=== PATIENT | male | born 1965 | race Caucasian/White ===

== ENCOUNTER → 2016-07-08 | Outpatient (CLI) | payer OTHER ==
[2016-07-08 10:34] LABS: Basophils % (A) 0 %; CH 31.6; CHCM 33.9; Eosinophils # (A) 0.1 k/uL (0-0.7); Eosinophils % (A) 3 %; HCT 45.4 % (39.0-53.0); HDW 2.78; HGB 14.6 gm/dL (13.0-17.5); Luc # (Auto) 0.14; Luc % (Auto) 4; Lymphocytes # (A) 1.2 k/uL (1.0-4.8); Lymphocytes % (A) 31 %; MCH 30.1 pg (25.0-35.0); MCHC 32.1 g/dL (31.0-37.0); MCV 93.7 fL (80.0-100.0); Mean Platelet Volume 6.7; Monocytes # (A) 0.4 k/uL (0-1.0); Monocytes % (A) 9 %; Neutrophils # (A) 2.1 k/uL (1.3-7.7); Neutrophils % (A) 53 %; RBC 4.85 m/uL (4.30-5.90); RDW 13.7 % (11.5-15.5); WBC 3.9 k/uL (3.8-10.6); WBC (Perox) 3.89
[2016-07-08 11:04] LABS: ALT 37 U/L (21-72); AST 26 U/L (17-59); Alkaline Phosphatase 43 U/L (38-126); Anion Gap 8 mmol/L; Blood Urea Nitrogen 15 mg/dL (9-20); Calcium 9.3 mg/dL (8.4-10.2); Carbon Dioxide 26 mmol/L (22-30); Chloride 106 mmol/L (98-107); Cholesterol 142 mg/dL (<200); Glucose 108 mg/dL (74-99); HDL Cholesterol 74 mg/dL (40-60); Non-African American GFR(MDRD) >60 (>60 ml/min/1.73 sqM); Potassium 4.7 mmol/L (3.5-5.1); Sodium 140 mmol/L (137-145); Total Bilirubin 0.9 mg/dL (0.2-1.3); Total Protein 7.1 g/dL (6.3-8.2); Triglycerides 48 mg/dL (<150)
== END | disposition home or self-care (01) ==
LOC: LABWHC1 10:07
PROVIDERS: ATTEND Family Medicine
DX: Z00.00 Encounter for general adult medical examination without abnormal findings (principal); Z12.5 Encounter for screening for malignant neoplasm of prostate
CPT/HCPCS: 84439; 80061; 80053; 84443; 85025; 36415; G0103

== ENCOUNTER → 2017-07-28 | Outpatient (CLI) | payer BC ==
[2017-07-28 09:12] LABS: Basophils % (A) 1 %; Eosinophils # (A) 0.2 k/uL (0-0.7); Eosinophils % (A) 4 %; HCT 44.8 % (39.0-53.0); HGB 14.8 gm/dL (13.0-17.5); Lymphocytes # (A) 1.3 k/uL (1.0-4.8); Lymphocytes % (A) 30 %; MCH 30.5 pg (25.0-35.0); MCHC 33.1 g/dL (31.0-37.0); MCV 92.2 fL (80.0-100.0); Mean Platelet Volume 6.6; Monocytes # (A) 0.4 k/uL (0-1.0); Monocytes % (A) 10 %; Neutrophils # (A) 2.2 k/uL (1.3-7.7); Neutrophils % (A) 52 %; Platelet Count 208 k/uL (150-450); RBC 4.86 m/uL (4.30-5.90); RDW 13.5 % (11.5-15.5); WBC 4.2 k/uL (3.8-10.6)
[2017-07-28 11:58] LABS: ALT 42 U/L (21-72); AST 34 U/L (17-59); Albumin 4.2 g/dL (3.5-5.0); Alkaline Phosphatase 52 U/L (38-126); Anion Gap 9 mmol/L; Blood Urea Nitrogen 16 mg/dL (9-20); Calcium 9.4 mg/dL (8.4-10.2); Carbon Dioxide 25 mmol/L (22-30); Chloride 104 mmol/L (98-107); Cholesterol 201 mg/dL (<200); Glucose 88 mg/dL (74-99); HDL Cholesterol 82 mg/dL (40-60); LDL Cholesterol,Calculated 107 mg/dL (0-99); Potassium 4.3 mmol/L (3.5-5.1); Sodium 138 mmol/L (137-145); Total Bilirubin 1.3 mg/dL (0.2-1.3); Triglycerides 60 mg/dL (<150)
[2017-07-28 12:14] LABS: T4, Free (Free Thyroxine) 0.93 ng/dL (0.78-2.19)
[2017-07-28 12:28] LABS: PSA Annual Screen 0.67 ng/mL (0.00-4.00)
== END | disposition home or self-care (01) ==
LOC: LABWHC1 08:32
PROVIDERS: ATTEND Family Medicine
DX: Z00.00 Encounter for general adult medical examination without abnormal findings (principal); Z12.5 Encounter for screening for malignant neoplasm of prostate
CPT/HCPCS: 84439; 80061; 80053; 84443; 85025; 36415; G0103

== ENCOUNTER → 2018-04-15 | Outpatient (CLI) | payer BC ==
--- NOTE | 2018-04-15 15:34 | US ---
EXAMINATION TYPE: US scrotum with doppler. Grayscale and color Doppler Duplex imaging performed of t he scrotum. DATE OF EXAM: 04/15/2018 COMPARISON: NONE CLINICAL HISTORY: N50.9 Left testicle mass. EXAM MEASUREMENTS: TESTICLES: Right Testicle: 4.4 x 2.2 x 3.6 cm Left Testicle: 4.0 x 2.7 x 3.1 cm EPIDIDYMIS HEAD: Right Epididymis: 0.7 cm Left Epididymis: unable to visualize left due to crowding with hydrocele Doppler performed to assess for testicular vascularity; good bilateral color flow and waveforms are s een. There is no evidence of testicular torsion. Presence of hydroceles: Left measuring 4.8 x 5.6 x 3.2cm Presence of varicoceles: no Color flow, arterial and venous waveforms are noted in both testes. IMPRESSION: Left-sided hydrocele is sizable.
== END ==
LOC: RADUSWWP 14:37
PROVIDERS: ATTEND Family Medicine
DX: N43.3 Hydrocele, unspecified (principal)
CPT/HCPCS: 76870; 93975

== ENCOUNTER → 2019-08-02 | Outpatient (CLI) | payer BC ==
[2019-08-02 09:23] LABS: HCT 47.9 % (39.0-53.0); HGB 15.6 gm/dL (13.0-17.5); MCH 30.1 pg (25.0-35.0); MCHC 32.5 g/dL (31.0-37.0); MCV 92.7 fL (80.0-100.0); Mean Platelet Volume 7.2; Platelet Count 217 k/uL (150-450); RBC 5.17 m/uL (4.30-5.90); RDW 13.3 % (11.5-15.5); WBC 4.4 k/uL (3.8-10.6)
[2019-08-02 09:43] LABS: Basophils # (M) 0.04 k/uL (0-0.2); Eosinophils # (M) 0.09 k/uL (0-0.7); Monocytes # (M) 0.35 k/uL (0-1.0); Neutrophils # (M) 2.42 k/uL (1.3-7.7); Neutrophils % (M) 55 %; Nucleated Red Blood Cells 0 /100 WBC (0-0); Total Cells Counted 100
[2019-08-02 15:57] LABS: African American GFR (CKD) 78.4 (60.0-200.0); Albumin 4.5 g/dL (3.80-4.90); Albumin/Globulin Ratio 1.96 (1.60-3.17); BUN/Creat Ratio 18.33 Ratio (12.00-20.00); Calcium 9.5 mg/dL (8.7-10.3); Chol/HDL Ratio 2.69; Globulin 2.3 g/dL (1.6-3.3); LDL Cholesterol,Calculated 101.6 mg/dL (0.0-131.0); Non-African American GFR(CKD) 67.7 (60.0-200.0); Total Bilirubin 0.8 mg/dL (0.2-1.2); Total Protein 6.8 g/dL (6.2-8.2); VLDL Calculation 16.4 mg/dL (5.00-40.00)
[2019-08-02 16:05] LABS: T4, Free (Free Thyroxine) 1.3 ng/dL (0.80-1.80)
[2019-08-02 17:13] LABS: Hemoglobin A1C 6.6 % (4.0-6.0)
== END | disposition home or self-care (01) ==
LOC: LABWHC1 08:35
PROVIDERS: ATTEND Family Medicine
DX: Z00.00 Encounter for general adult medical examination without abnormal findings (principal)
CPT/HCPCS: 36415; 80053; 80061; 83036; 84153; 84439; 84443; 85025

== ENCOUNTER → 2023-07-31 | Outpatient (CLI) | payer BC ==
[2023-07-31 15:31] LABS: HCT 43.8 % (39.6-50.0); HGB 14.9 g/dL (13.0-17.0); MCH 31.5 pg (27.0-32.0); MCV 92.6 FL (80.0-97.0); NRBC Per 100 WBC 0 X 10*3/uL (0.00-0.01); Platelet Count 223 X 10*3/uL (140-440); RBC 4.73 X 10*6/uL (4.40-5.60); RDW 13.8 % (11.5-14.5); WBC 4.74 X 10*3/uL (4.50-10.00)
[2023-07-31 16:49] LABS: ALT 40 U/L (10-49); AST 33 U/L (14-35); Albumin 4.4 g/dL (3.8-4.9); Albumin/Globulin Ratio 1.91 Ratio (1.60-3.17); Alkaline Phosphatase 51 U/L (41-126); BUN/Creat Ratio 19.31 Ratio (12.00-20.00); Blood Urea Nitrogen 25.1 mg/dL (9.0-27.0); Calcium 9.5 mg/dL (8.7-10.3); Carbon Dioxide 22.6 mmol/L (21.6-31.8); Chloride 106 mmol/L (96-109); Chol/HDL Ratio 2.72 Ratio; Globulin 2.3 g/dL (1.6-3.3); Glucose 121 mg/dL (70-110); LDL Cholesterol,Calculated 99.8 mg/dL (0.0-131.0); Potassium 4.5 mmol/L (3.5-5.5); Sodium 140 mmol/L (135-145); T4, Free (Free Thyroxine) 1.11 ng/dL (0.80-1.80); Total Bilirubin 0.6 mg/dL (0.3-1.2); Total Protein 6.7 g/dL (6.2-8.2); VLDL Calculation 16.46 mg/dL (5.00-40.00)
== END | disposition home or self-care (01) ==
LOC: LABWHC1 08:33
PROVIDERS: ATTEND Family Medicine
DX: Z00.00 Encounter for general adult medical examination without abnormal findings (principal); Z12.5 Encounter for screening for malignant neoplasm of prostate; E11.9 Type 2 diabetes mellitus without complications; E03.9 Hypothyroidism, unspecified
CPT/HCPCS: 84439; 80061; 80053; 84443; 85027; 83036; 36415; G0103

== ENCOUNTER 2024-07-09 10:04 | Observation (INO) | payer BC ==
--- NOTE | 2024-07-09 10:57 | ED ---
Chest Pain HPI - General Chief Complaint: Chest Pain Stated Complaint: Chest pain, dizziness Time Seen by Provider: 07/09/24 10:23 Source: patient, RN notes reviewed Mode of arrival: ambulatory Limitations: no limitations - History of Present Illness Initial Comments: 59-year-old male presents emergency department chief complaint of chest pain, lightheadedness and dizziness. Patient states he started having some chest comfort and came home from work last night he states that has progressed he states the dizziness started around midnight. He states he feels very lightheaded with the room spinning. Patient denies any headache no focal weakness. Patient states he did have a heart cath 10 years ago. He does have a history of hyperlipidemia and hypertension and diabetes but recently got off oral medications. Patient has a significant cardiac family history. Denies any leg pain leg swelling no history of DVT or PE. - Related Data Home Medications Medication Instructions Recorded Confirmed Levothyroxine Sodium [Synthroid] 25 mcg PO DAILY 03/04/14 10/04/15 Simvastatin [Zocor] 80 mg PO HS 03/04/14 10/04/15 amLODIPine BESYLATE/BENAZEPRIL 5 mg PO DAILY 03/04/14 10/04/15 [Lotrel 10-20 mg Capsule] Allergies Allergy/AdvReac Type Severity Reaction Status Date / Time No Known Allergies Allergy Verified 07/09/24 10:18 Review of Systems ROS Statement: Those systems with pertinent positive or pertinent negative responses have been documented in the HPI. ROS Other: All systems not noted in ROS Statement are negative. EKG Findings - EKG Comments: EKG Findings:: EKG performed at 10: 31 sinus rhythm rate of 86 UT 167 QRS 95 QT/QTc 339/382 there is noted inverted T wave in lead III - EKG Results: EKG: interpreted by VALARIE Past Medical History Past Medical History: Hyperlipidemia, Hypertension, Thyroid Disorder History of Any Multi-Drug Resistant Organisms: None Reported Past Surgical History: Heart Catheterization Additional Past Anesthesia/Blood Transfusion Reaction / Comment(s): never had anesthesia Past Psychological History: No Psychological Hx Reported Smoking Status: Never smoker Past Alcohol Use History: Occasional Past Drug Use History: None Reported General Exam Limitations: no limitations General appearance: alert, in no apparent distress Head exam: Present: atraumatic, normocephalic, normal inspection Eye exam: Present: normal appearance, PERRL, EOMI. Absent: scleral icterus, conjunctival injection, periorbital swelling Neck exam: Present: normal inspection, full ROM. Absent: tenderness, meningismus, lymphadenopathy Respiratory exam: Present: normal lung sounds bilaterally. Absent: respiratory distress, wheezes, rales, rhonchi, stridor Cardiovascular Exam: Present: regular rate, normal rhythm, normal heart sounds. Absent: systolic murmur, diastolic murmur, rubs, gallop, clicks GI/Abdominal exam: Present: soft, normal bowel sounds. Absent: distended, tenderness, guarding, rebound, rigid Course Vital Signs 07/09/24 10:12 Temperature 97.9 F Pulse Rate 90 Respiratory 22 Rate Blood Pressure 178/95 O2 Sat by Pulse 98 Oximetry Chest Pain MDM - MDM Was pt. sent in by a medical professional or institution (, PA, DRIVE IN THEATER ATTENDANT, urgent care, hospital, or senior care...) When possible be specific @ -No Did you speak to anyone other than the patient for history (EMS, parent, family, police, friend...)? What history was obtained from this source @ -No Did you review nursing and triage notes (agree or disagree)? Why? @ -I reviewed and agree with nursing and triage notes Were old charts reviewed (outside hosp., previous admission, EMS record, old EKG, old radiological studies, urgent care reports/EKG's, senior care records)? Report findings @ -No old charts were reviewed Differential Diagnosis (chest pain, altered mental status, abdominal pain women, abdominal pain men, vaginal bleeding, weakness, fever, dyspnea, syncope, headache, dizziness, GI bleed, back pain, seizure, CVA, palpatations, mental h ealth, musculoskeletal)? @Differential Chest Pain: Stable Angina, Unstable Angina, STEMI, NSTEMI Aortic Dissection, Pneumothorax, Musculoskeletal, Esophageal Spasm GERD, Cholecystitis, Pancreatitis, Zoster, this is not meant to be an all-inclusive list. EKG interpreted by me (3pts min.). @ -As above X-rays interpreted by me (1pt min.). @ -Chest x-ray shows no acute cardiopulmonary process CT interpreted by me (1pt min.). @ -None done U/S interpreted by me (1pt. min.). @ -None done What testing was considered but not performed or refused? (CT, X-rays, U/S, labs)? Why? @ -None What meds were considered but not given or refused? Why? @ -None Did you discuss the management of the patient with other professionals (professionals i.e. , PA, DRIVE IN THEATER ATTENDANT, lab, RT, psych nurse, social work specialist, hr analyst, t eacher, canine enforcement officer, pillowcase turner)? Give summary @ -Dr. Mccord for admission Was smoking cessation discussed for >3mins.? @ -No Was critical care preformed (if so, how long)? @ -No Were there social determinants of health that impacted care today? How? (Homelessness, low income, unemployed, alcoholism, drug addiction, transportation, low edu. Level, literacy, decrease access to med. care, assisted, rehab)? @ -No Was there de-escalation of care discussed even if they declined (Discuss DNR or withdrawal of care, Hospice)? DNR status @ -No What co-morbidities impacted this encounter? (DM, HTN, Smoking, COPD, CAD, Cancer, CVA, ARF, Chemo, Hep., AIDS, mental health diagnosis, sleep apnea, morbid obesity)? @ -Hypertension hyperlipidemia diabetes Was patient admitted / discharged? Hospital course, mention meds given and route, prescriptions, significant lab abnormalities, going to OR and other pertinent info. @ -Admitted for complaints of chest pain and dizziness. Patient only has anterior mild chest pain he has no back pain no tearing sensation he does have intermittent dizziness. Patient may admitted for cardiac rule out he has a negative troponin, EKG has mild changes no ST elevation. Undiagnosed new problem with uncertain prognosis? @ -No Drug Therapy requiring intensive monitoring for toxicity (Heparin, Nitro, Insulin, Cardizem)? @ -No Were any procedures done? @ -No Diagnosis/symptom? @ -Chest pain Acute, or Chronic, or Acute on Chronic? @ -Acute Uncomplicated (without systemic symptoms) or Complicated (systemic symptoms)? @ -Complicated Side effects of treatment? @ -No Exacerbation, Progression, or Severe Exacerbation? @ -No Poses a threat to life or bodily function? How? (Chest pain, USA, VT, pneumonia, PE, COPD, DKA, ARF, appy, cholecystitis, CVA, Diverticulitis, Homicidal, Suicidal, threat to staff... and all critical care pts) @ -Yes possible ACS risk for cardiac function Disposition Clinical Impression: Chest pain Disposition: ADMITTED IP TO THIS HOSP Referrals: Brandt Mccord DO [Primary Care Provider] - 1-2 days Time of Disposition: 13:39
[2024-07-09 11:58] LABS: Basophils % (A) 0 %; Eosinophils # (A) 0.1 k/uL (0-0.7); Eosinophils % (A) 2 %; HCT 47.3 % (39.0-53.0); HGB 15.9 gm/dL (13.0-17.5); Lymphocytes # (A) 1.3 k/uL (1.0-4.8); Lymphocytes % (A) 20 %; MCH 31.4 pg (25.0-35.0); MCHC 33.7 g/dL (31.0-37.0); MCV 93.2 fL (80.0-100.0); Mean Platelet Volume 7.4; Monocytes # (A) 0.5 k/uL (0-1.0); Monocytes % (A) 8 %; Neutrophils # (A) 4.3 k/uL (1.3-7.7); Neutrophils % (A) 68 %; Platelet Count 227 k/uL (150-450); RBC 5.08 m/uL (4.30-5.90); RDW 13.7 % (11.5-15.5); WBC 6.3 k/uL (3.8-10.6)
[2024-07-09 12:09] LABS: ALT 36 U/L (4-49); AST 41 U/L (17-59); African American GFR (CKD) >90 (>60 ml/min/1.73 sqM); Albumin 4.6 g/dL (3.5-5.0); Alkaline Phosphatase 50 U/L (38-126); Anion Gap 11 mmol/L; Blood Urea Nitrogen 25 mg/dL (9-20); Calcium 9.4 mg/dL (8.4-10.2); Carbon Dioxide 24 mmol/L (22-30); Chloride 103 mmol/L (98-107); Glucose 113 mg/dL (74-99); Magnesium 1.9 mg/dL (1.6-2.3); Non-African American GFR(CKD) 89 (>60 ml/min/1.73 sqM); Potassium 4.5 mmol/L (3.5-5.1); Sodium 138 mmol/L (137-145); Total Bilirubin 0.9 mg/dL (0.2-1.3); Total Protein 7.3 g/dL (6.3-8.2)
[2024-07-09 12:12] LABS: Prothrombin Time 11.4 sec (10.0-12.5)
[2024-07-09 12:16] LABS: NT-Pro-B-Type Natriuretic Pept 60 pg/mL
[2024-07-09] MEDS: ASPIRIN 81 MG PO STA (13:09)
--- NOTE | 2024-07-09 13:21 | XR ---
EXAMINATION TYPE: XR chest 2V DATE OF EXAM: 07/09/2024 12:43 PM COMPARISON: Chest x-ray February 28, 2014 CLINICAL INDICATION: Male, 59 years old with history of Chest Pain, TECHNIQUE: Frontal and lateral views of the chest are obtained. FINDINGS: There is no focal air space opacity, pleural effusion, or pneumothorax seen. The cardiac silhouette size remains within normal limits. Multilevel spurring and bridging osteophytes in the tho racic spine are redemonstrated. IMPRESSION: No acute process. No significant change from prior. [facility], , 07/09/2024 1:19 PM
[2024-07-09] MEDS ORDERED: NITROGLYCERIN SL TABS 0.4 MG TAB SUBLINGUAL PRN (13:34)
[2024-07-09] MEDS: ATORVASTATIN 40 MG TAB PO SCH (21:27)
[2024-07-10] MEDS: LEVOTHYROXINE 25 MCG TAB PO SCH (05:51)
[2024-07-10] MEDS: lisinopriL 20 MG TAB PO SCH (08:44)
[2024-07-10] MEDS: amLODIPine 10 MG TAB PO SCH (08:45)
[2024-07-10] MEDS ORDERED: ASPIRIN 325 MG TAB PO SCH (09:00)
--- NOTE | 2024-07-10 10:04 | P.CRDCN ---
History of Present Illness Consult date: 07/10/24 Consult reason: chest pain History of present illness: This is a 67-year-old male patient previously seen in the office [address] Crain and at that time had history of hypertension hyperlipidemia. He also has history of hypothyroidism. Patient states that he developed chest pain that felt like a tightness in the mid area that started on Sunday and lasted all day. He then developed dizziness that was lasting for 30 seconds and occurred every time he moved his had a rolled over in bed. He states the room was spinning. He has never had this sensation before. He denies any chest pain at this time. No palpitations. Blood pressure 158/88, heart rate 78, pulse ox 98% on room air. Patient has a family history of father with coronary artery disease at age 51. -EKG: Sinus rhythm with no acute ST-T wave changes. -Chest x-ray: No acute process. -Laboratory studies: CBC within normal limits. D-dimer 0.29. Sodium 138, p otassium 4.5, BUN 25 creatinine 0.93. Troponin negative x 3. Magnesium 1.9. Liver function test normal. proBNP 60. -Home cardiac medications: Amlodipine/benazepril 5-21 tablet daily, simvastatin 40 mg daily at bedtime, also on levothyroxine. -Cardiac catheterization performed in 2013 revealed normal coronaries, normal end-diastolic pressure, normal left ventricular function. Abnormal Cardiolite scan appears to be false positive. Review Of Systems: At the time of my exam: CONSTITUTIONAL: Denies fever or chills. Reports dizziness. HEENT: Denies blurred vision, vision changes, or eye pain. Denies hemoptysis CARDIOVASCULAR: Denies chest pain. Denies orthopnea. Denies PND. Denies palpitat ions RESPIRATORY: Denies shortness of breath. GASTROINTESTINAL: Denies abdominal pain. Denies nausea or vomiting. HEMATOLOGIC: Denies bleeding disorders. GENITOURINARY: Denies any blood in urine. SKIN: Denies puritis. Denies rash. Physical examination: Gen: This is 59-year-old male in no acute distress VS: reviewed HEENT: Head is atraumatic, normocephalic. Pupils equal, round. Sclerae is anict vignesh. NECK: Supple. No JVD. LUNGS: Clear to auscultation. No wheezes or rhonchi. No intercostal r etractions. HEART: Regular rate and rhythm. No murmur. ABDOMEN: Soft No tenderness. EXTREMITIES: No pedal edema. No calf tenderness. NEUROLOGICAL: Patient is awake, alert and oriented x3. Assessment: Vertigo Atypical chest pain, resolved Acute coronary syndrome ruled out Hypertension Hyperlipidemia Hypothyroidism Plan: Resume patient's home cardiac medications Discontinue nitroglycerin and aspirin Start patient on meclizine 25 mg 3 times daily for dizziness Obtain 2-D echocardiogram and Doppler study to assess cardiac structure and function If echocardiogram is unremarkable, patient is cleared for discharge and may follow-up in the office with Dr. Murphy for outpatient stress testing once vertigo is resolved. Further recommendations to follow based upon clinical course Thank you kindly for this consultation. Nurse practitioner note has been reviewed, I agree with documented findings and plan of care. Patient was seen and examined. Past Medical History Past Medical History: Hyperlipidemia, Hypertension, Thyroid Disorder History of Any Multi-Drug Resistant Organisms: None Reported Past Surgical History: Heart Catheterization Additional Past Anesthesia/Blood Transfusion Reaction / Comment(s): never had anesthesia Smoking Status: Never smoker Medications and Allergies Home Medications Medication Instructions Recorded Confirmed Type Levothyroxine Sodium [Synthroid] 25 mcg PO DAILY 03/04/14 07/09/24 History Mv-Min/Folic/K1/Lycopen/Lutein 1 tab PO HS 07/09/24 07/09/24 History [Centrum Silver Men Tablet] Simvastatin [Zocor] 40 mg PO HS 07/09/24 07/09/24 History amLODIPine BESYLATE/BENAZEPRIL 1 cap PO DAILY 07/09/24 07/09/24 History [Lotrel 5-20 mg Capsule] Allergies Allergy/AdvReac Type Severity Reaction Status Date / Time No Known Allergies Allergy Verified 07/09/24 14:20 Physical Exam Vitals: Vital Signs Temp Pulse Pulse Resp BP BP Pulse Ox 07/10/24 02:34 78 18 158/88 98 07/09/24 20:05 98 F 66 18 146/93 98 07/09/24 17:28 98.6 F 73 16 166/97 99 07/09/24 13:47 84 18 150/92 96 07/09/24 10:12 97.9 F 90 22 178/95 98 Intake and Output 07/09/24 07/10/24 07/10/24 22:59 06:59 14:59 Other: # Voids 2 Weight 105.233 kg Results 07/09/24 11:20 07/09/24 11:20 Cardiac Enzymes 07/09/24 07/09/24 07/09/24 Range/Units 11:20 11:20 14:09 AST 41 (17-59) U/L Troponin I <0.012 <0.012 (0.000-0.034) ng/mL 07/09/24 Range/Units 17:44 AST (17-59) U/L Troponin I <0.012 (0.000-0.034) ng/mL Coagulation 07/09/24 Range/Units 11:20 PT 11.4 (10.0-12.5) sec APTT 23.0 (22.0-30.0) sec CBC 07/09/24 Range/Units 11:20 WBC 6.3 (3.8-10.6) k/uL RBC 5.08 (4.30-5.90) m/uL Hgb 15.9 (13.0-17.5) gm/dL Hct 47.3 (39.0-53.0) % Plt Count 227 (150-450) k/uL Comprehensive Metabolic Panel 07/09/24 Range/Units 11:20 Sodium 138 (137-145) mmol/L Potassium 4.5 (3.5-5.1) mmol/L Chloride 103 (98-107) mmol/L Carbon Dioxide 24 (22-30) mmol/L BUN 25 H (9-20) mg/dL Creatinine 0.93 (0.66-1.25) mg/dL Glucose 113 H (74-99) mg/dL Calcium 9.4 (8.4-10.2) mg/dL AST 41 (17-59) U/L ALT 36 (4-49) U/L Alkaline Phosphatase 50 (38-126) U/L Total Protein 7.3 (6.3-8.2) g/dL Albumin 4.6 (3.5-5.0) g/dL Current Medications Generic Name Dose Route Start Last Admin Trade Name Freq PRN Reason Stop Dose Admin Amlodipine Besylate 10 mg 07/10/24 09:00 Amlodipine 10 Mg Tab PO DAILY REPLACED BY [facility] Aspirin 325 mg 07/10/24 09:00 Aspirin 325 Mg Tab PO DAILY REPLACED BY [facility] Atorvastatin Calcium 40 mg 07/09/24 21:00 07/09/24 21:27 Atorvastatin 40 Mg Tab PO 40 mg HS ASHOK Administration Levothyroxine Sodium 25 mcg 07/10/24 06:30 07/10/24 05:51 Levothyroxine 25 Mcg Tab PO 25 mcg 0630 ASHOK Administration Lisinopril 20 mg 07/10/24 09:00 Lisinopril 20 Mg Tab PO DAILY REPLACED BY [facility] Nitroglycerin 0.4 mg 07/09/24 13:34 Nitroglycerin Sl Tabs 0.4 Mg Tab SUBLINGUAL Q5M PRN Chest Pain Intake and Output 07/09/24 07/10/24 07/10/24 22:59 06:59 14:59 Other: # Voids 2 Weight 105.233 kg 07/09/24 11:20 07/09/24 11:20
[2024-07-10] MEDS: MECLIZINE 25 MG TAB PO PRN (10:25)
[2024-07-10 10:54] LABS: Chol/HDL Ratio 2.53 Ratio; VLDL Calculation 18.04 mg/dL (5.00-40.00)
--- NOTE | 2024-07-10 12:12 | P.HPIM ---
History of Present Illness H&P Date: 07/10/24 Chief Complaint: Dizziness, chest pressure, mild shortness of breath History and Physical and Discharge Summary: This is a pleasant 59-year-old gentleman with past medical history significant for hypertension, hyperlipidemia, hypothyroidism, obesity presented to the ER with complaints of of dizziness, chest pressure and mild shortness of breath upon awakening. Reports yesterday, upon awakening developed new onset of dizziness when changing positions from lying to sitting and from turning left to right, accompanied by chest pressure and mild shortness of breath.states his dizziness occurrences lasted less than a minute. Hypertensive on admission with blood pressure 178/95, heart rate 90, respiratory rate 22, maintaining O2 sats in the high 90s on room air. Hematology, coagulation panels unremarkable. Electrolytes within normal limits. Bicarb 24, BUN 25, creatinine 0.93, GFR 89. Glucose 113. Troponin negative x 3, proBNP 60. EKG reported sinus rhythm. Currently denies any chest pain, palpitations or shortness of breath. Review of Systems ROS Statement: Those systems with pertinent positive or pertinent negative responses have been documented in the HPI. ROS Other: All systems not noted in ROS Statement are negative. Past Medical History Past Medical History: Hyperlipidemia, Hypertension, Thyroid Disorder History of Any Multi-Drug Resistant Organisms: None Reported Past Surgical History: Heart Catheterization Additional Past Anesthesia/Blood Transfusion Reaction / Comment(s): never had anesthesia Smoking Status: Never smoker Medications and Allergies Home Medications Medication Instructions Recorded Confirmed Type Levothyroxine Sodium [Synthroid] 25 mcg PO DAILY 03/04/14 07/09/24 History Mv-Min/Folic/K1/Lycopen/Lutein 1 tab PO HS 07/09/24 07/09/24 History [Centrum Silver Men Tablet] Simvastatin [Zocor] 40 mg PO HS 07/09/24 07/09/24 History amLODIPine BESYLATE/BENAZEPRIL 1 cap PO DAILY 07/09/24 07/09/24 History [Lotrel 5-20 mg Capsule] Meclizine [Antivert] 12.5 mg PO TID PRN #90 tablet 07/10/24 Rx Allergies Allergy/AdvReac Type Severity Reaction Status Date / Time No Known Allergies Allergy Verified 07/09/24 14:20 Physical Exam Vitals: Vital Signs Temp Pulse Pulse Resp BP BP Pulse Ox 07/10/24 02:34 78 18 158/88 98 07/09/24 20:05 98 F 66 18 146/93 98 07/09/24 17:28 98.6 F 73 16 166/97 99 07/09/24 13:47 84 18 150/92 96 07/09/24 10:12 97.9 F 90 22 178/95 98 Intake and Output 07/09/24 07/10/24 07/10/24 22:59 06:59 14:59 Other: # Voids 2 Weight 105.233 kg PHYSICAL EXAM: VITAL SIGNS: [Reviewed] GENERAL: 59-year-old male , alert and oriented x 3, sitting up in bed, no acute distress. HEENT: Atraumatic, normocephalic ,conjunctivae normal. eyes normal. NECK: Supple, no JVD. No thyroid enlargement. No LNs CARDIOVASCULAR: S1, S2 regular. No murmur RESPIRATION: Unlabored, equal air entry, clear to auscultation. ABDOMEN: Soft, nondistended, nontender . No guarding. no masses palpable. No ascites, No hepatosplenomegaly.Bowel sounds heard. LEGS: No edema. no swelling NERVOUS SYSTEM: Cranial N 2-12 grossly normal. No focal deficits. Skin: Warm and dry, no rash Results CBC & Chem 7: 07/09/24 11:20 07/09/24 11:20 Labs: Abnormal Lab Results - Last 24 Hours (Table) 07/09/24 Range/Units 11:20 BUN 25 H (9-20) mg/dL Glucose 113 H (74-99) mg/dL Thrombosis Risk Factor Assmnt - Choose All That Apply Any of the Below Risk Factors Present?: Yes Each Factor Represents 1 point: Age 41-60 years, Obesity (BMI >25) Other Risk Factors: No Thrombosis Risk Factor Assessment Total Risk Factor Score: 2 Thrombosis Risk Factor Assessment Level: Low Risk Assessment and Plan Assessment: Dizziness accompanied by chest pressure and mild shortness of breath. Negative orthostatic hypotension. Peripheral vertigo. Shared Fraser Dahoff exercises with them-to be further reinforced at PCPs office Acute coronary syndrome ruled out, cardiology following Hypertension Hyperlipidemia Hypothyroidism Obesity, BMI 35 Plan: Continue on current medication regimen ,monitoring and symptomatic treatment. Evaluated by cardiology, echocardiogram ordered. Antivert initiated. Patient will be discharged home today in a stable condition with guarded prognosis pending echo results, DC clearance per cardiology. Patient's family already affiliated with Dr. Foley and patient requests to follow-up with Dr. Foley outpatient. Patient has been advised to follow-up with PCP for permission to return to work; patient works maintenance at [employer], climbing ladders often throughout the day. Off work until patient is cleared by PCP at follow-up .follow-up with PCP for Fraser-Daroff Exercises (vertigo PT/exercises). The impression and plan of care has been dictated as directed. : I performed a history and examination of this patient, discussed the same with the dictator. I agree with the dictator's note ,documented as a scribe. Any additional findings or plans will be noted.
[2024-07-10 15:56] VITALS: PULSE 80; TEMP 98
[2024-07-10 15:58] VITALS: BP 148/86; RESP 18
--- NOTE | 2024-07-10 16:44 | CA ---
Transthoracic Echo Report Name: Enzo Claros Age: 59 Gender: M : 1965 Exam Date: 07/10/2024 11:41 Exam Location: [facility] Ht (in): 68 Wt (lb): 232 Ordering Physician: Nikita Alfaro Attending/Referring Phys: [id number], Angelina Three Knife Trimmer Susanna Prescott, [facility] Procedure CPT: Indications: Chest Pain Cardiac Hx: Technical Quality: Fair Contrast 1: Definity Total Dose (mL): 2 Contrast 2: Total Dose (mL): MEASUREMENTS (Male / Female) Normal Values 2D ECHO LV Diastolic Diameter PLAX 5.7 cm 4.2 - 5.9 / 3.9 - 5.3 cm LV Systolic Diameter PLAX 3.4 cm IVS Diastolic Thickness 1.0 cm 0.6 - 1.0 / 0.6 - 0.9 cm LVPW Diastolic Thickness 1.1 cm 0.6 - 1.0 / 0.6 - 0.9 cm LV Relative Wall Thickness 0.4 RV Internal Dim ED PLAX 3.2 cm LA Systolic Diameter LX 3.5 cm 3.0 - 4.0 / 2.7 - 3.8 cm LA Volume 53.6 cm??? 18 - 58 / 22 - 52 cm??? LA Volume Index 23.4 cm???/m??? 16 - 28 cm???/m??? M-MODE Aortic Root Diameter MM 3.4 cm DOPPLER AV Peak Velocity 140.5 cm/s AV Peak Gradient 7.9 mmHg MV Area PHT 3.2 cm??? Mitral E Point Velocity 73.7 cm/s Mitral A Point Velocity 96.3 cm/s Mitral E to A Ratio 0.8 MV Deceleration Time 234.2 ms FINDINGS Left Ventricle Left ventricular ejection fraction is estimated at 55-60 %. Left ventricular cavity size normal. Left ventricular wall thickness normal. Normal left ventricular wall motion. Right Ventricle Normal right ventricular size. Unable to estimate the right ventricular systolic pressure. Right Atrium Normal right atrial size. No right atrial thrombus or mass seen. Left Atrium Normal left atrial size. No left atrial thrombus or mass present. Mitral Valve Structurally normal mitral valve. Trace to mild mitral regurgitation. Aortic Valve Trileaflet aortic valve. No aortic valve stenosis or regurgitation. Tricuspid Valve Structurally normal tricuspid valve. No tricuspid stenosis, regurgitation or prolapse. Pulmonic Valve Structurally normal pulmonic valve. Trace pulmonic regurgitation. Pericardium No pericardial effusion. Aorta Normal size aortic root and proximal ascending aorta. CONCLUSIONS Normal LV function Previewed by: Dr. Tawanda Murphy MD (Electronically Signed) Final Date: 10 July 2024 16:44
[2024-07-10] MEDS ORDERED: NON FORMULARY DRUG (Simvastatin 40 MG Tab) PO SCH (21:00)
[2024-07-10] MEDS ORDERED: ATORVASTATIN 20 MG TAB PO SCH (21:00)
== END 2024-07-10 15:58 | disposition home or self-care (01) ==
LOC: EC 10:04 → 6NMEDSUR 13:04 → 1SOBS 17:16
PROVIDERS: ADMIT Family Medicine; ATTEND Family Medicine
DX: R07.89 Other chest pain (principal); H81.399 Other peripheral vertigo, unspecified ear; R06.02 Shortness of breath; E78.5 Hyperlipidemia, unspecified; I10 Essential (primary) hypertension; E03.9 Hypothyroidism, unspecified; E11.9 Type 2 diabetes mellitus without complications; E66.9 Obesity, unspecified; Z68.35 Body mass index [BMI] 35.0-35.9, adult; Z79.890 Hormone replacement therapy; Z79.899 Other long term (current) drug therapy; Z82.49 Family history of ischemic heart disease and other diseases of the circulatory system
CPT/HCPCS: 99285; 36415; 93005; 93306; 85379; 83880; 80061; 80053; 83735; 84484; 85025; 85610; 85730; 71046; G0378 ×3; Q9957

== ENCOUNTER 2024-11-14 10:17 | Day surgery (SDC) | payer BC ==
[~2024-11-14 10:17] MED LIST: ALPRAZolam 0.25 MG TAB PO PRN; ALPRAZolam 0.5 MG TAB PO PRN; NITROGLYCERIN SL TABS 0.4 MG TAB SUBLINGUAL PRN
[2024-11-14] MEDS: IV FLUID CONTINUATION 1,000 ML IV ONE (10:26)
[2024-11-14] MEDS: ATORVASTATIN 80 MG TAB PO STA (10:33)
[2024-11-14] MEDS: SODIUM CHLORIDE 0.9% 1,000 ML in EMPTY BAG 1 BAG IV SCH (10:33)
[2024-11-14] MEDS: ASPIRIN 325 MG TAB PO STA (10:34)
[2024-11-14] MEDS: ASPIRIN 81 MG PO STA (10:36)
[2024-11-14 10:40] VITALS: RESP 16; TEMP 97.8
[2024-11-14] MEDS: MIDAZOLAM 2 MG/2 ML VIAL IVP ONE (12:52)
[2024-11-14] MEDS: LIDOCAINE 1% INJ 10MG/ML (20 ML MDV) SQ ONE (12:52)
[2024-11-14] MEDS: fentaNYL (PF) 50 MCG/1 ML VIAL IVP ONE (12:52)
[2024-11-14] MEDS: VERAPAMIL SYRINGE (5 MG/10 ML) INTRAARTER ONE (12:52)
[2024-11-14] MEDS: HEPARIN SODIUM 1,000 UN/ML (10ML VL) IVP ONE (12:56)
[2024-11-14] MEDS: IOPAMIDOL-370 100ML BTL INJ ONE (13:03)
[2024-11-14] MEDS: HEPARIN SODIUM,PORCINE 10,000 UNIT in SODIUM CHLORIDE 0.9% 1,000 ML IRRIGATION PRN (13:04)
[2024-11-14] MEDS: HEPARIN SODIUM,PORCINE (1 ML) 2,500 UNIT in SODIUM CHLORIDE 0.9% 250 ML IRRIGATION PRN (13:04)
--- NOTE | 2024-11-14 13:26 | P.CARDCATH ---
Description of Procedure: PROCEDURES PERFORMED: Left heart catheterization, bilateral coronary angiography, ultrasound guided arterial access INDICATION: Abnormal stress test CONSENT:I have discussed the risks, benefits and alternative therapies for the above-mentioned procedure and for both sedation/analgesia as well as necessary blood product administration, if indicated, as they pertain to this patient. The patient has indicated understanding and acceptance of the risks and procedures discussed. PROCEDURE: After the risks, benefits and alternatives of the above mentioned procedure explained in detail with the patient, informed consent was obtained. Patient was taken to the catheterization lab and prepped and draped in usual fashion. Ultrasound guidance was used to assess for arterial access. 1% lidocaine was used to anesthetize the right radial artery. A 6-Eth[place]ian sheath was placed in the right radial artery using modified Seldinger technique and ultrasound guidance. Left coronary angiography was performed with a 5-Eth[place]ian JL 3.5 catheter and right coronary angiography was performed with a 5-[place] FR5 catheter in various views. A 5-[place] FR5 catheter was inserted into the left ventricle and pressure measurements were obtained. The right radial sheath was removed and a TR band was placed with hemostasis achieved. The patient to lerated the procedure well. Patient was transported back to the post catheterization holding area in stable condition. Conscious Sedation: Patient was monitored under the direct supervision of myself for conscious sedation using Versed and fentanyl for a total duration of 10 minutes HEMODYNAMICS: Aorta: 138/72 LV: 136/10, LVEDP 20 SELECTIVE CORONARY ARTERIOGRAPHY: LEFT MAIN: The left main is a large caliber vessel which bifurcates into the LAD, ramus and circumflex. There is no significant stenosis. LEFT ANTERIOR DESCENDING CORONARY ARTERY: LAD is a large caliber vessel which wraps around to the apex. There is no significant stenosis. RAMUS INTERMEDIUS: The ramus intermedius is moderate caliber and normal LEFT CIRCUMFLEX CORONARY ARTERY: Left circumflex is a moderate caliber vessel without significant stenosis. RIGHT CORONARY ARTERY: The right coronary artery is a large caliber vessel which gives off a PDA and PLV branch and is the dominant vessel. There is no significant stenosis. FINAL IMPRESSION: 1. Normal coronary arteries as described above. 2. Mildly elevated left sided filling pressures PLAN: 1. Aggressive risk factor modification per most recent ACC/AHA guidelines. 2. Follow-up in the office in 1-2 weeks.
[2024-11-14 16:51] VITALS: BP 117/67; PULSE 78
== END 2024-11-14 16:32 | disposition home or self-care (01) ==
LOC: CATHCVL 10:17
PROVIDERS: ATTEND Internal Medicine
DX: R94.39 Abnormal result of other cardiovascular function study (principal); I10 Essential (primary) hypertension; E78.00 Pure hypercholesterolemia, unspecified; Z82.49 Family history of ischemic heart disease and other diseases of the circulatory system; Z79.890 Hormone replacement therapy; Z79.899 Other long term (current) drug therapy
CPT/HCPCS: 93458; 99152; C1769; C1894; J2250; J1644 ×3; J2003; Q9967; J3010